=== PATIENT | female | born 1985 | race Caucasian/White ===

== ENCOUNTER 2017-03-31 09:52 | Emergency (ER) | payer OTHER ==
--- NOTE | 2017-03-31 12:04 | ED Physician Documentation ---
PD HPI HEAD INJURY - Stated complaint Stated Complaint: NOSE/FACE INJ - Chief complaint Chief Complaint: Heent - History obtained from History obtained from: Patient, Family - History of Present Illness Mechanism of head injury: Fell Where head injury occurred: Home Timing - onset: Last night Location of injury: Right, Front Quality of pain: Pain, Throbbing Associated symptoms: Nausea / vomiting, Neck pain. No: LOC, AMS, Amnesia, Paresthesias, Seizures, Ear drainage, Nasal drainage Symptoms improve with: Rest Symptoms worsen with: Palpation Similar symptoms before: Has not had sx before Recently seen: Not recently seen - Additional information Additional information: 31-year-old female was tripped by her dogs last night and landed flat on her face. She did not have loss of consciousness today she has pain nausea vomiting and dizziness. Review of Systems Constitutional: denies: Fever, Chills Eyes: denies: Decreased vision Ears: denies: Ear pain Nose: denies: Congestion Throat: denies: Sore throat Cardiac: denies: Chest pain / pressure Respiratory: denies: Dyspnea, Cough GI: reports: Nausea, Vomiting. denies: Abdominal Pain : denies: Dysuria, Frequency Skin: denies: Rash Musculoskeletal: reports: Neck pain. denies: Back pain, Extremity pain, Joint pain, Extremity swelling Neurologic: reports: Headache, Head injury, Other (dizziness). denies: Generalized weakness, Focal weakness, Numbness, Confused, Altered mental status , LOC PD PAST MEDICAL HISTORY - Past Medical History Past Medical History: No - Present Medications Home Medications: Ambulatory Orders Medication Instructions Recorded Confirmed Citalopram [CeleXA] 20 mg PO DAILY 03/31/17 03/31/17 - Allergies Allergies/Adverse Reactions: Allergies Allergy/AdvReac Type Severity Reaction Status Date / Time pheudofed Allergy Unknown Uncoded 03/31/17 10:04 - Social History Does the pt smoke?: No Smoking Status: Never smoker Does the pt drink ETOH?: No Does the pt have substance abuse?: No PD ED PE NORMAL - Vitals Vital signs reviewed: Yes (normal ) - General General: Alert and oriented X 3, No acute distress, Well developed/nourished - HEENT HEENT: PERRL, EOMI, Other (There is a deep abrasion to the forehead on the right side and an abrasion over the nasal bridge. ) - Neck Neck: Supple, no meningeal sign, Other (There is central bony tenderness midline over the upper cervical spine. ) - Respiratory Respiratory: No respiratory distress - Derm Derm: Normal color, Warm and dry, No rash - Extremities Extremities: No deformity, No edema - Neuro Neuro: Alert and oriented X 3, software solutions architect 2-12 intact, No motor deficit, No sensory deficit, Normal speech - Psych Psych: Normal mood, Normal affect Results - Vitals Vitals: Vital Signs - 24 hr 03/31/17 10:02 Temperature 36.6 C Heart Rate 62 Respiratory 18 Rate Blood Pressure 103/69 O2 Saturation 100 Oxygen O2 Source Room air - Rads (name of study) CT head without Radiology: Prelim report reviewed (Impression: 1. No acute intra-cranial process. 2. Small right anterior scalp hematoma and scalp contusion.), EMP read indepedently, See rad report Cervical spine without Radiology: Prelim report reviewed (Impression: No fracture or spondylolisthesis. ), EMP read indepedently, See rad report PD MEDICAL DECISION MAKING - ED course Complexity details: reviewed results, re-evaluated patient, considered differential, d/w patient, d/w family ED course: 31-year-old female with a concussion last night without loss of consciousness has increased symptoms this morning with nausea and vomiting and neck pain and she is evaluated in the emergency department with a CT scan of her head and neck. The studies are without evidence of acute findings. She is diagnosed with concussion syndrome and I discussed with her concussion management including not having another head injury and reduced level of activity during the period of healing. Departure - Departure Disposition: 01 Home, Self Care Clinical Impression: Concussion Qualifiers: Encounter type: initial encounter Loss of consciousness presence/duration: without LOC Qualified Code(s): S06.0X0A - Concussion without loss of consciousness, initial encounter Condition: Stable Instructions: ED Concussion Follow-Up: BALJINDER VYAS [Primary Care Provider] -
--- NOTE | 2017-03-31 12:29 | CT Preliminary Report ---
Exam: CT Head W/O IMPRESSION: 1. No acute intracranial process 2. Small right anterior scalp hematoma and scalp contusion [facility] SITE ID: [id number]
--- NOTE | 2017-03-31 12:32 | CT Report ---
EXAM: CT HEAD EXAM DATE: 03/31/2017 12:22 PM. CLINICAL HISTORY: Concussion frontal contusion . COMPARISON: None. TECHNIQUE: Multiaxial CT images were obtained from the foramen magnum to the vertex. IV contrast: Non e. Reformats: Coronal. In accordance with CT protocol optimization, one or more of the following dose reduction techniques w ere utilized for this exam: automated exposure control, adjustment of mA and/or KV based on patient s ize, or use of iterative reconstructive technique. FINDINGS: Parenchyma: No intraparenchymal hemorrhage. No evidence of mass, midline shift, or CT findings of inf arction. Antoine-white differentiation is distinct. Extraaxial Spaces: Normal for age. No subdural or epidural collections identified. Ventricles: Normal in size and position. Sinuses: Imaged paranasal sinuses, orbits, and mastoids show no significant abnormality. Bones: No evidence of fracture or calvarial defect. Other: Small right anterior scalp hematoma and scalp contusion. IMPRESSION: 1. No acute intracranial process 2. Small right anterior scalp hematoma and scalp contusion [facility] Referring Provider Line: [phone] SITE ID: [id number]
--- NOTE | 2017-03-31 12:32 | CT Preliminary Report ---
Exam: CT Cervical Spine W/O IMPRESSION: No fracture or spondylolisthesis [facility] SITE ID: [id number]
--- NOTE | 2017-03-31 12:35 | CT Report ---
EXAM: CT CERVICAL SPINE WITHOUT CONTRAST DATE: 03/31/2017 12:22 PM HISTORY: Concussion with neck pain . COMPARISONS: None. TECHNIQUE: Thin-section axial images were acquired of the cervical spine without contrast. Post-proce ssing: Coronal and sagittal reformats. Other: None. In accordance with CT protocol optimization, one or more of the following dose reduction techniques w ere utilized for this exam: automated exposure control, adjustment of mA and/or KV based on patient s ize, or use of iterative reconstructive technique. FINDINGS: Alignment: Normal. No scoliosis or spondylolisthesis. Bones: No fracture or bone lesion. Interspace Levels/Facets: Preserved Musculature: Normal. No fatty atrophy. Other: The paravertebral and prevertebral soft tissues are normal. The lung apices are clear. IMPRESSION: No fracture or spondylolisthesis [facility] Referring Provider Line: [phone] SITE ID: [id number]
[2017-03-31 13:02] VITALS: BP 101/60
== END 2017-03-31 13:17 | disposition home or self-care (01) ==
LOC: ED 09:52
DX: S06.0X0A Concussion without loss of consciousness, initial encounter (principal); W01.0XXA Fall on same level from slipping, tripping and stumbling without subsequent striking against object, initial encounter; Y92.009 Unspecified place in unspecified non-institutional (private) residence as the place of occurrence of the external cause
CPT/HCPCS: 70450; 72125; 99283